=== PATIENT | female | born 1980 | race Caucasian/White ===

== ENCOUNTER 2021-07-07 22:06 | Outpatient (CLI) | payer MEDICAID ==
--- NOTE | 2021-07-08 15:37 | Ultrasound Report ---
PROCEDURE: Retroperitoneal INDICATIONS: HEMATURIA TECHNIQUE: Real-time scanning was performed of the retroperitoneal organs, with image documentation. COMPARISON: None. FINDINGS: Kidneys: Kidneys are normal in size. Right kidney measures 10.1 cm long; left kidney measures 12.8 cm long. Right renal cortical thickness is 1.3 cm; left renal cortical thickness is 1.4 cm. No ketty d masses or hydronephrosis. Bilateral contains echogenic foci are present, left greater than right. L argest is identified on the left measuring 4 mm. Bladder: Pre-void bladder volume is 268 mL. Post-void residual is 13 mL. Pre-void images demonstra te no intraluminal masses or stones. On pre-void images, ureteral jets are noted with color Dopp ler interrogation. (Of note, ureteral jets may not be detectable in up to 25% of cases due to insuff icient differences in specific gravity between ureteral and bladder urine). Miscellaneous: No free abdominal fluid. Simple right ovarian cyst is noted. IMPRESSION: Punctate bilateral nonobstructing renal calculi. Reviewed by: Natty Dejesus MD on 07/08/2021 3:36 PM PDT Approved by: Natty Dejesus MD on 07/08/2021 3:36 PM PDT Station ID: [id number]
== END 2021-07-07 22:07 | disposition home or self-care (01) ==
LOC: EDSEX → DI 22:06
PROVIDERS: ATTEND Internal Medicine Nephrology
DX: N20.0 Calculus of kidney (principal); R31.9 Hematuria, unspecified

== ENCOUNTER 2021-07-22 15:14 | Outpatient (CLI) | payer MEDICAID ==
[2021-07-22 15:38] LABS: BILIRUBIN,URINE NEGATIVE (NEGATIVE); GLUCOSE, URINE (UA) NEGATIVE (NEGATIVE); KETONES,URINE (UA) NEGATIVE (NEGATIVE); LEUKOCYTE ESTERASE, URINE NEGATIVE (NEGATIVE); NITRITE,URINE NEGATIVE (NEGATIVE); OCCULT BLOOD,URINE LARGE (NEGATIVE); PH,URINE 5.5 PH (5.0-7.5); PROTEIN,URINE TRACE mg/dL (NEGATIVE); UROBILINOGEN,URINE 0.2 (NORMAL) E.U./dL (NORMAL)
[2021-07-22 15:39] LABS: CLARITY,URINE CLEAR (CLEAR); PROTEIN/CREATININE RATIO,URINE 0.2 (<=0.2)
[2021-07-22 16:00] LABS: BACTERIA,URINE Few /HPF (None Seen); SQUAMOUS EPITHELIAL CELL,UR FEW Squamous (<= Few); WBC,URINE 0-3 /HPF (0-5)
== END 2021-07-22 15:15 | disposition home or self-care (01) ==
LOC: LAB 15:14
PROVIDERS: ATTEND Internal Medicine Nephrology
DX: N30.00 Acute cystitis without hematuria (principal); R80.9 Proteinuria, unspecified
CPT/HCPCS: 81001; 82570; 84156

== ENCOUNTER 2022-05-13 21:43 | Emergency (ER) | payer MEDICAID ==
[2022-05-13] MEDS ORDERED: HYDROcod/ACETAM 5/325 MG TABLET PO STA (22:55)
[2022-05-13] MEDS ORDERED: HYDROcod/ACET 5/325 Prepack 4 PO STA (22:55)
[2022-05-13] MEDS ORDERED: CLINDAMYCIN 150 MG CAPSULE PO STA (22:56)
--- NOTE | 2022-05-13 22:56 | ED Physician Documentation ---
PD HPI HEENT - Stated complaint Stated Complaint: LT JAW PX/TOOTH PX - Chief complaint Chief Complaint: Heent - History obtained from History obtained from: Patient - History of Present Illness Timing - onset: Today Timing - duration: Hours Timing - details: Gradual onset, Still present Location: Tooth Improves: Medication Associated symptoms: Facial swelling. No: Fever, Congestion, Rhinorrhea, Trismus, Unable to swallow, Swollen nodes, Headache, Cough Similar symptoms before: Diagnosis (dental abscess) Recently seen: Not recently seen - Additional information Additional information: Previously well 42 y/o Farida Dixon has some bad teeth especially in the left lower jaw and these have begun to hurt and she is having some swelling to her jaw and the left side of her face. She was uncomfortable tonight and unable to sleep and has come to the emergency department. Review of Systems Constitutional: denies: Fever Eyes: denies: Decreased vision Ears: denies: Ear pain Nose: denies: Rhinorrhea / runny nose, Congestion Throat: reports: Dental pain / toothache. denies: Sore throat Respiratory: denies: Dyspnea, Cough GI: denies: Vomiting, Diarrhea : denies: Dysuria PD PAST MEDICAL HISTORY - Present Medications Home Medications: Ambulatory Orders Medication Instructions Recorded Confirmed Clindamycin [Cleocin] 300 mg PO Q6H 7 Days #28 cap 05/13/22 - Allergies Allergies/Adverse Reactions: Allergies Allergy/AdvReac Type Severity Reaction Status Date / Time Penicillins Allergy Hives Verified 05/13/22 22:03 PD ED PE NORMAL - Vitals Vital signs reviewed: Yes (hypertensive ) - General General: Alert and oriented X 3, No acute distress, Well developed/nourished - HEENT HEENT: Atraumatic, PERRL, EOMI, Other (Mild swelling to the left side of the face is appreciated there is no erythema there is no fluctuance inside the mouth there is maximal tenderness on the mesial portion of the left lower rear molars. These teeth are broken off at the base. no fluctuance. 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 She is allergic to penicillin we will start her on some clindamycin she is given a first dose here in the emergency department she is given some pain medication as well we dispensed four [place]. Departure - Departure Disposition: , Self Care Clinical Impression: Dental abscess Condition: Stable Instructions: ED Abscess Dental Follow-Up: [facility] [Physician No Access] - Prescriptions: Clindamycin [Cleocin] 300 mg PO Q6H 7 Days #28 cap Comments: Farida, today it looks like you have infection in your left lower jaw and we are starting you on some antibiotic. Clindamycin has been E scribed to the [facility] in [place]. We have sent you home today with some narcotic pain reliever. Be aware that you should not drive or operate machinery after you have taken this and it will make you constipated. My recommendation for the constipation is to use milk of magnesia if you have not had a bowel movement in 2 days. In addition this can be habit-forming which is why we only administer a small amount of this for pain control.
[2022-05-13 23:07] VITALS: BP 165/92
== END 2022-05-13 23:06 | disposition home or self-care (01) ==
LOC: ED 21:43
DX: K04.7 Periapical abscess without sinus (principal)
CPT/HCPCS: 99282; 99283; A9270

== ENCOUNTER 2022-09-02 23:42 | Emergency (ER) | payer MEDICAID ==
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
[2022-09-03] MEDS ORDERED: SILVER SULFADIAZINE CREAM 25 GM TUBE TOP STA (01:42)
[2022-09-03 02:08] VITALS: BP 169/96
== END 2022-09-03 02:02 | disposition home or self-care (01) ==
LOC: ED 23:42
DX: T21.12XA Burn of first degree of abdominal wall, initial encounter (principal); X10.2XXA Contact with fats and cooking oils, initial encounter; I10 Essential (primary) hypertension; Z79.899 Other long term (current) drug therapy
CPT/HCPCS: 99282; 99283; A9270